=== PATIENT | female | born 1975 | race Caucasian/White ===

== ENCOUNTER 2016-07-17 09:01 | Observation (INO) | payer OTHER ==
[~2016-07-17] VITALS: Ht 162.6 cm; Wt 73.8 kg
--- NOTE | 2016-07-17 09:56 | DIAGNOSTIC IMAGING REPORT ---
PROCEDURE: CT ABD/PELVIS WITH CONTRAST CLINICAL INDICATION: Abdominal pain, initial encounter TECHNIQUE: 125 ml of Isovue 300 were injected intravenously and axial images were obtained of the entire abdomen and pelvis with sagittal and coronal reformations. COMPARISON: None. FINDINGS: ABDOMEN: Calcified right lower lobe granuloma. Heart size is normal. Small ascites around the liver and spleen. Liver, gallbladder, pancreas, spleen, adrenal glands, kidneys and abdominal aorta are normal. PELVIS: 3.8 cm left adnexal cystic structure with surrounding soft tissue which may represent soft tissue mass or clot. There are also moderate dense ascites suggestive of hemoperitoneum. Uterus and bladder are normal. Normal appendix. Bones are unremarkable. IMPRESSION: 1. 3.8 cm left adnexal cystic structure with moderate slightly dense of ascites suspicious for ovarian cyst and hemoperitoneum. The patient is status post ablation but ectopic should still be considered. 2. Results discussed with Dr. Mullen All CT scans at this facility use dose modulation, iterative reconstruction, and/or weight-based dosing when appropriate to reduce radiation dose to as low as reasonably achievable.
[2016-07-17 10:53] VITALS: BP 109/67
--- NOTE | 2016-07-17 13:53 | HISTORY AND PHYSICAL ---
ADMITTED: 07/17/2016 CHIEF COMPLAINT: 1. Abdominal pain HISTORY OF PRESENT ILLNESS: A 40-year-old female who presents to [facility] in transfer from my office where she was evaluated for abdominal pain. She reports the abdominal pain started on the night prior to admission. She had an excellent dinner at [employer], a local restaurant. She was very full afterwards. At home, she began to have abdominal discomfort. She went to the bathroom and had a stool which was mildly hard. The pain was not relieved. She noted some tingling and burning in her bladder with urination at that time. She continued to have pain into the night. At 3 a.m. she had a soft stool; once again, the pain was not relieved. She felt a little better lying down than sitting or standing. She felt nauseated but had no vomiting. She denies melena or bright red blood per rectum, diarrhea or constipation, fevers, chills, chest pain, shortness of breath or peripheral edema. She notes she did not feel like eating and thinks that the bleeding may have aggravated or caused the pain. She did take some [place] during the night, which seemed to help her feel a bit better in the epigastrium, but did not help the pain across her mid and lower abdomen. She then tried Gas-X, which her got this morning, once again without significant relief. She does note she has had similar pain in the past which has lasted only a few hours and resolved and has not been particularly associated with large meals. She has had a bilateral tubal ligation and also has had endometrial ablation, so she does not have periods. MEDICAL/SURGICAL HISTORY: Past medical history remarkable for Enoch thyroiditis, fatigue, hair loss and concerns about weight. The patient is G6, P4. Past surgical history: x4, dilatation and curettage 1997, bilateral tubal ligation, uterine ablation performed x2, in 04/2014 in 07/2014. MEDICATIONS: 1. Multivitamin 1 p.o. daily. 2. Vitamin D 1000 units daily. ALLERGIES: 1. NONE. 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 FAMILY HISTORY: Paternal grandmother had breast cancer as well as brain and lymph node cancer. Paternal great grandfather had leukemia and lymphoma. Father of renal cell carcinoma and also had hypertension. REVIEW OF SYSTEMS: General: Denies fevers, chills, malaise. Neurologic: Denies headache, paresthesia, or weakness. HEENT: Denies hearing change, vision change, rhinitis or sore throat. Respiratory: Denies cough, shortness of breath, or wheezing. Cardiac: Denies palpitations, chest pain, or paroxysmal nocturnal dyspnea. Gastrointestinal: See above. Genitourinary: The patient admits to some tingling with urination. She does not have burning with urination; it seemed worse last night and is not bothersome today. Dermatologic: Denies rash, sores, or itching. PHYSICAL EXAMINATION: GENERAL: Well-developed, well-nourished female in mild distress. VITAL SIGNS: Temperature 98.1, pulse 75, respirations 21, blood pressure 109/67, SaO2 100% on room air. HEENT: Clear. NECK: Supple, without adenopathy or thyromegaly. CHEST: Clear to auscultation and percussion. HEART: Regular rate and rhythm without murmur. ABDOMEN: Positive bowel sounds. Mildly distended. Bowel sounds are somewhat scant. No masses are palpable. There is diffuse tenderness, worse in the epigastrium and the 2 lower quadrants. There is rebound localizing to all 3 of those areas and guarding in all 3 of those areas. There is some increased pain with motion of the legs, and there is pain in the abdomen with percussion to the heels while supine. BACK: Straight, without CVA tenderness. GENITAL AND RECTAL: Deferred. EXTREMITIES: Without cyanosis, clubbing, or edema. NEUROLOGIC: Intact and symmetric. LAB/IMAGING: WBC 14.1, hemoglobin 11.4, hematocrit 33.8, platelets 257. Sodium 138, potassium 3.9, chloride 104, bicarbonate 25, BUN 11, creatinine 0.6, glucose 93, calcium 9.0, total bilirubin 0.5, AST 10, ALT 14, alkaline phosphatase 66, protein 6.8, albumin 3.6. Urinalysis reveals pH 5.5, specific gravity 1.010, otherwise clear. Imaging : CT of the abdomen and pelvis reveals a 3.8 cm left adnexal cystic structure with moderate ascites, suspicious for ovarian cyst and hemoperitoneum. The appendix appears normal. IMPRESSION/PLAN: 1. Abdominal pain secondary to ovarian cyst with rupture and hemoperitoneum. 2. Status post bilateral tubal ligation, with negative test. PLAN: Admit to [facility] for IV hydration and serial hemoglobin and hematocrit testing. Consultation obtained with Dr. Rafy Tolentino, who recommends monitoring for decline in hemoglobin and hematocrit, to consider whether or not to perform a laparoscopy/laparotomy.
[2016-07-17 14:40] VITALS: BP 93/56
[2016-07-17 18:03] VITALS: BP 103/58
[2016-07-17 23:50] VITALS: BP 101/59
[2016-07-18 04:54] VITALS: BP 101/65
[2016-07-18 05:43] VITALS: BP 11/67; BP 111/67
[2016-07-18] MEDS ORDERED: VICODIN EQUIVAL1 TAB PO (07:51)
--- NOTE | 2016-07-18 07:51 | Provider's Discharge Care Plan ---
Problem, Goal, Plan Problem List 1. Ovarian cyst Goals: Improved health/wellness Instructions: Follow up as directed 2. Hemoperitoneum Goals: Improved health/wellness Instructions: Call if any worsening 3. Abdominal pain Goals: Improved health/wellness Instructions: Follow up as directed
--- NOTE | 2016-07-18 08:46 | DISCHARGE SUMMARY ---
ADMIT DATE: 07/17/2016 DISCHARGE DATE: 07/18/2016 ADMISSION DIAGNOSES: 1. Abdominal pain secondary to ovarian cyst with rupture and hemoperitoneum. 2. Status post bilateral tubal ligation with negative test. DISCHARGE DIAGNOSES: 1. Abdominal pain secondary to ovarian cyst with rupture and hemoperitoneum. 2. Status post bilateral tubal ligation with negative test. BRIEF HISTORY: The patient presented with increasing abdominal pain over approximately 18 hours prior to admission. CT of the abdomen was obtained, ordered through the office after evaluation in the office. This showed a ruptured ovarian cyst and hemoperitoneum. The patient was therefore admitted. HOSPITAL COURSE: The patient was admitted to [facility] and given IV hydration and IV pain control and surgical consultation with Dr. Rafy Tolentino OB/ REGISTRATION REPRESENTATIVE. The decision was made to monitor with serial hematocrit and hemoglobin testing. With this, patient had a slow decline in hemoglobin, but gradual improvement in symptoms. Decision was therefore made to continue conservative observation after discussion of the possibility of surgery with the patient. The patient tolerated this through the night. Her hemoglobin did decline to 9.8; however, her symptoms lessened. She was able to ambulate and was tolerating clear liquids well. DISCHARGE INSTRUCTIONS/MEDICATIONS: Disposition: Home. Discharge medications Vicodin 5/325 one p.o. q.4 hours p.r.n. pain. Light activity at home. Advance diet as tolerated recommended. Special instructions: Follow up in my office in 2 weeks. Contact us if there is any worsening of symptomatology.
--- NOTE | 2016-07-18 21:14 | CONSULTATION REPORT ---
DATE OF CONSULTATION: 07/18/2016 CHIEF COMPLAINT: 1. Acute onset vague abdominal pain HISTORY OF PRESENT ILLNESS: The patient was at a dinner on 07/16/2016 and noticed some abdominal pain approximately 9 p.m. 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 PHYSICAL EXAMINATION: GENERAL: CAT scan showed a left-sided 3 cm enlarged ovary and cyst, which was consistent with a hemorrhagic corpus luteum cyst. Because there was a moderate amount of free fluid in the pelvis, this may have tracked up her upper abdomen and gave her some upper abdominal pain. The pain was vague. She described it as more significant on the right side than the left, even though the hemorrhagic corpus luteum cyst to originate from the left. IMPRESSION/PLAN: Dr. Mullen consulted with me and I discussed with the patient there are options. She had a previous section, had her tubes tied. She was ovulating in her usual fashion. She was given option of observation throughout the day and sequential hemoglobin and hematocrit, which was done and apparently when it appeared to be stable she was given option of having a laparoscope performed and have removal of free fluid in the pelvis. Risks and benefits of this were discussed with patient, she declined. We then reevaluated the patient this morning on 07/18/2016 and she was doing well. Risk and benefits were again advised to the patient. She chose to have discharge home with potential return if persistent abdominal pain worsens. She is to follow up with Dr. Mullen. We discussed using control pills or cycle regulatory pills to control her ovulation and possible repeat of this in the future, next 10 years. The patient understands, accepts.
== END 2016-07-18 08:30 | disposition home or self-care (01) ==
LOC: CT SRH 09:01 → TRANS SRH 10:29 → ACUTE2 SRH 10:29
PROVIDERS: ADMIT Family Medicine
DX: N83.12 Corpus luteum cyst of left ovary (principal); K66.1 Hemoperitoneum
CPT/HCPCS: 29230; 29231; 29249; 29262; 29264; 90004; 90074; 90100; 91162; 91163; 93070; 95059

== ENCOUNTER 2016-10-20 09:13 | Outpatient (CLI) | payer OTHER ==
[~2016-10-20 09:13] MED LIST: VICODIN EQUIVAL1 TAB PO
--- NOTE | 2016-10-20 10:51 | DIAGNOSTIC IMAGING REPORT ---
PROCEDURE: MG BILATERAL SCREENING W/CAD INDICATION: Screening. Baseline. Family history breast carcinoma (grandmother). TECHNIQUE: Bilateral CC and MLO digital views. COMPARISON: None. FINDINGS: Computer-aided detection applied. Moderately dense with a few dystrophic calcifications. No change. IMPRESSION: 1. Negative mammogram. RESULT CODE: 1- Negative. A. A negative report should not delay biopsy if a dominant or clinically suspicious mass is present. 10-15% of cancers are not identified by x-ray. B. A negative report may reinforce clinical impression. C. Adenosis and dense breasts may obscure an underlying neoplasm. D. False positive reports average 6-10%. E.. A yearly screening mammogram is recommended. A reminder letter will be scheduled.
== END 2016-10-20 23:00 ==
LOC: MAM SRH 09:13
DX: Z12.31 Encounter for screening mammogram for malignant neoplasm of breast (principal)